=== PATIENT | male | born 1975 | race Caucasian/White ===

== ENCOUNTER → 2018-10-30 | Day surgery (SDC) | payer OTHER ==
[~2018-10-30] MED LIST: ALPR0.5T6 PO; BUPR150T20 PO; CITA40TA5 PO; IV RINGERS,LACTATED 1000ML 1,000 ML IV SCH; LIDOCAINE 1% PF 2 ML VIAL. ID PRN; LIDOCAINE 1% PF 2 ML VIAL. ONE; MIDAZOLAM HCL/PF 2 MG/2 ML VIAL. IV PRN; PRED50TA PO; PROPOFOL 60 ML IV ONE; fentaNYL PF VIAL 100 MCG/2 ML VIAL IV PRN
[2018-10-30 13:50] VITALS: BP 118/78
--- NOTE | 2018-11-03 09:06 | PATHOLOGY ---
[facility] Accession Number: [id number] . 01 Material submitted: . PART A: TERMINAL ILEUM BIOPSY PART B: RANDOM COLON BIOPSY . 01 Clinical history: . GERD, Crohn's . 02 Diagnosis: A. Small bowel biopsy, terminal ileum: - Active chronic ileitis, without granulomas or specific features. . B. Colonic mucosa, random colon biopsies: - No diagnostic abnormalities. LBQ/10/31/2018 . 02 Comment: Sections of the terminal ileum biopsy reveal segments of small intestine mucosa showing moderate active chronic inflammation with focal hyperplastic mucosal associated lymphoid tissue. There are no granulomas or specific features. The findings could be consistent with inflammatory bowel disease (Crohn's disease). Correlate clinically. . Sections of the random colon biopsy reveal multiple segments of colonic mucosa containing a few mucosal associated lymphoid aggregates. There is no evidence of a chronic destructive colitis, lymphocytic colitis, or collagenous colitis. (JPM/db; 10/31/2018) . 02 Electronically signed: . Krzysztof Teague MD, Pathologist NPI- [id number] . 01 Gross description: . A. Received in formalin labeled "Jero Claros, terminal ileum BX, rule out Crohn's," are 3 segments of qureshi soft tissue measuring 1.2 x 0.6 x 0.2 cm in aggregate dimensions and ranging from 0.3 to 0.6 cm in maximum dimensions. The specimen is filtered and entirely submitted in cassette A1. . B. Received in formalin labeled "Jero Claros, random colon BX," are multiple segments of qureshi soft tissue measuring 2.0 x 0.6 x 0.1 cm in aggregate dimensions. The specimen is filtered and entirely submitted in cassette B1. (TSD; 10/30/2018) TOB/TOB . 02 Pathologist provided ICD-10: K52.9, K21.9 . 02 CPT . 883692, [id number] Specimen Comment: A courtesy copy of this report has been sent to Specimen Comment: [phone], . Specimen Comment: Report sent to / DR LEWIS Specimen Comment: A duplicate report has been generated due to demographic updates. Performed at: 01 [facility] [address], [place] [id number] MD Rajinder Ramsey MD Phone: [phone] Performed at: 02 [facility] [address], [place] [id number] MD Krzysztof Teague MD Phone: [phone]
== END ==
LOC: SURG 12:23
PROVIDERS: ATTEND Internal Medicine Gastroenterology
DX: K52.89 Other specified noninfective gastroenteritis and colitis (principal); K63.89 Other specified diseases of intestine; K64.0 First degree hemorrhoids; K29.50 Unspecified chronic gastritis without bleeding; F41.9 Anxiety disorder, unspecified; F32.9 Major depressive disorder, single episode, unspecified; K21.9 Gastro-esophageal reflux disease without esophagitis; Z79.899 Other long term (current) drug therapy
CPT/HCPCS: 43235; 45380; J2704; 43239